=== PATIENT | male | born 1945 | race Two or more races ===

== ENCOUNTER 2020-06-25 11:32 | Inpatient (IN) | payer OTHER ==
[~2020-06-25] VITALS: Ht 167.6 cm; Wt 99.7 kg
[2020-06-25] MEDS ORDERED: ONDANSETRON HCL 4 MG/2 ML VIAL ONE (11:37)
[2020-06-25] MEDS ORDERED: MORPHINE SULFATE 4 MG/ML SYR/VIAL ONE (11:37)
[2020-06-25] MEDS ORDERED: ONDANSETRON HCL 4 MG/2 ML VIAL IV ONE ×2 (11:45→12:00)
[2020-06-25] MEDS ORDERED: HEPARIN 1,000 UNITS/ml 1ML VIAL IV ONE (11:45)
[2020-06-25] MEDS ORDERED: MORPHINE SULFATE 4 MG/ML SYR/VIAL IV ONE ×2 (11:45→12:00)
[2020-06-25] MEDS ORDERED: LIDOCAINE 2%HCL (LOCAL ANESTH.) INJ 20ML MDV ONE (12:10)
[2020-06-25 12:23] LABS: Basophils # (auto) 0 10 ^3/uL (0-0.2); Basophils % (auto) 0.4 % (0.0-2.0); Eosinophils # (auto) 0.1 10 ^3/uL (0-0.8); Hematocrit 50.6 % (41.0-53.0); Hemoglobin 16.8 g/dL (13.5-17.5); Lymphocytes # (auto) 3.3 10 ^3/uL (0.4-5.4); Lymphocytes % (auto) 42.5 % (10.0-50.0); Mean Corpuscular Hemoglobin 29.7 pg (28.0-32.0); Mean Corpuscular Hgb Conc. 33.3 g/dL (32.0-36.0); Mean Corpuscular Volume 89.1 fL (80.0-100.0); Monocytes # (auto) 0.7 10 ^3/uL (0-1.3); Monocytes % (auto) 9.3 % (0.0-12.0); Neutrophils # (auto) 3.6 10 ^3/uL (1.6-8.6); Neutrophils % (auto) 46.8 % (37.0-80.0); Nucleated Red Blood Cells % 0.1 %; Platelet Count (auto) 243 10^3/uL (140-450); Red Blood Cells 5.67 10^6/uL (4.5-5.90); Red Cell Distribution Width 13.3 % (11.8-14.3); White Blood Cell 7.7 10^3/uL (4.4-10.8)
[2020-06-25] MEDS ORDERED: HEPARIN SODIUM (PORCINE) 5000 UNITS/ML 1ML VIAL ONE (12:34)
[2020-06-25] MEDS ORDERED: MIDAZOLAM HCL 1MG/1ML-2 ML VIAL ONE (12:34)
[2020-06-25] MEDS ORDERED: fentaNYL CITRATE 100 MCG/2 ML VL ONE (12:34)
[2020-06-25] MEDS ORDERED: ANGIOMAX 250 MG VIAL IV ONE (12:34)
[2020-06-25] MEDS ORDERED: SODIUM CHL 0.9% 50 ML ONE (12:34)
[2020-06-25] MEDS ORDERED: VERAPAMIL 2.5MG/ML INJ 2ML VIAL IV ONE (12:34)
[2020-06-25 12:39] LABS: INR 0.95 (0.9-1.15); Partial Thromboplastin Time 26.2 sec (23.0-31.2)
[2020-06-25 12:41] LABS: Albumin 4.3 g/dL (3.4-5.0); Calcium 8.8 mg/dL (8.5-10.1); Magnesium 2.7 mg/dL (1.6-2.6); Potassium 4.3 mmol/L (3.5-5.1)
[2020-06-25 12:47] LABS: BUN/Creatinine Ratio 14.6; Bilirubin, Total 1.3 mg/dL (0.2-1.0); Total Protein 7.7 g/dL (6.4-8.2)
[2020-06-25] MEDS ORDERED: IOHEXOL 350 MG/ML 100ML IJ ONE (12:54)
[2020-06-25] MEDS ORDERED: CLOPIDOGREL 300 MG TAB ONE (13:12)
[2020-06-25] MEDS ORDERED: HYDROcodone-ACET 5/325MG TAB PO PRN (15:15)
[2020-06-25] MEDS ORDERED: ACETAMINOPHEN 500 MG TAB PO PRN (15:15)
[2020-06-25] MEDS ORDERED: ONDANSETRON HCL 4 MG/2 ML VIAL IV PRN (15:15)
[2020-06-25] MEDS ORDERED: NITROGLYCERIN 0.4 MG SL TAB SL PRN (15:15)
[2020-06-25] MEDS ORDERED: MORPHINE SULF INJ 2 MG/ML SYRINGE 1ML IV PRN (15:15)
--- NOTE | 2020-06-25 16:00 | NUR ---
Telemetry admit from Hospital Nurse Liaison GLORIA VEGA admitted to Telemetry unit after SBAR received. Patient s/p PTCA and stenting procedure with Dr. Regalado. Vasc Band on right wrist with approximately 8ml of air and s/p 2ml removal by lab intern RN. Access dry and intact. Will continue to follow removal instructions. Patient oriented to VINNIE,primary RN, unit, room, bed, and unit policies regarding patient care and visiting hours. Patient now on continuous telemetry monitoring, tele box #[id number] and telemetry reading on arrival to unit is Sinus rhythm 60bpm. Patient on room air, weighed by bedscale and encouraged to call if they need something. All questions and concerns addressed, patient verbalized understanding.
--- NOTE | 2020-06-25 16:15 | NUR ---
VASC BAND 2 ADDITIONAL MLS OF AIR REMOVED FROM BAND. NO BLEEDING NOTED. ADEQUATE CIRCULATION, SENSATION AND MOTOR FUNCTION INTACT. PATIENT INFORMED TO CALL RN IMMEDIATELY IF BLEEDING BEGINS.
[2020-06-25 17:02] VITALS: BP 137/76
--- NOTE | 2020-06-25 17:15 | NUR ---
VASC BAND REMOVED 2 REMAINING MLS OF AIR REMOVED FROM BAND AND BAND IS NOW COMPLETELY DEFLATED, GAUZE AND TEGADERM APPLIED TO SITE. NO BLEEDING NOTED. ADEQUATE CIRCULATION, SENSATION AND MOTOR FUNCTION INTACT. PATIENT INFORMED TO CALL RN IMMEDIATELY IF BLEEDING BEGINS. PATIENT ALSO EDUCATED TO REFRAIN FROM LIFTING, PUSHING, OR PULLING WITH AFFECTED WRIST FOR ONE WEEK. PATIENT VERBALIZES UNDERSTANDING. WILL CONTINUE TO CLOSELY MONITOR.
[2020-06-25] MEDS ORDERED: ATOR1TAB PO (18:34)
--- NOTE | 2020-06-25 19:05 | NUR ---
CRITICAL LAB REVERSE LOGISTICS ANALYST HOSPITALIST PAGED FOR CRITICAL LAB AWAITING CALL BACK
--- NOTE | 2020-06-25 19:08 | NUR ---
MD MCKEON AWARE OF CRITICAL LAB VALUE. NO NEW ORDERS RECEIVED.
--- NOTE | 2020-06-25 21:45 | NUR ---
call out to hospitalist to inform him of critical value troponin 3.370
[2020-06-25 22:00] VITALS: BP 108/68
[2020-06-25] MEDS ORDERED: ATORVASTATIN 20 MG TAB PO SCH (22:00)
--- NOTE | 2020-06-25 22:19 | NUR ---
Hospitalist Colton notified of troponin 3.370, no new orders at this time
[2020-06-26 05:00] VITALS: BP 128/71
[2020-06-26 09:00] VITALS: BP 121/82
[2020-06-26] MEDS ORDERED: ASPirin 81 mg TAB PO SCH (10:00)
[2020-06-26] MEDS ORDERED: CLOPIDOGREL BISULFATE 75 MG TAB PO SCH (10:00)
[2020-06-26 13:00] VITALS: BP 112/69
[2020-06-26 14:47] VITALS: BP 121/82
--- NOTE | 2020-06-26 16:05 | NUR ---
Discharge instructions given as ordered. Encourage to follow up with PMD as instructed. Prescription script filled and picked up at [facility]. All questions and concerns addressed. Patient verbalized understanding. Medication reconciliation form completed and copy given to patient. IV removed with catheter intact, pressure dressing applied. Telemetry unit returned to ICU. Patient taken to vehicle via wheelchair with all personal belongings, accompanied by staff. No distress noted at time of departure.
== END 2020-06-26 15:40 | disposition home or self-care (01) | DRG 247 ==
LOC: ER 11:32 → EDBD 11:32 → TELE-WESTW 16:00
PROVIDERS: ADMIT Internal Medicine; ATTEND Internal Medicine
PROC: 027136Z Dilation of Coronary Artery, Two Arteries with Three Drug-eluting Intraluminal Devices, Percutaneous Approach (ICD-10-PCS; principal; 2020-06-25)
PROC: B2111ZZ Fluoroscopy of Multiple Coronary Arteries using Low Osmolar Contrast (ICD-10-PCS; 2020-06-25)
DX: I21.19 ST elevation (STEMI) myocardial infarction involving other coronary artery of inferior wall (principal); E87.1 Hypo-osmolality and hyponatremia; I20.8 Other forms of angina pectoris; E66.9 Obesity, unspecified; Z68.35 Body mass index [BMI] 35.0-35.9, adult; E78.5 Hyperlipidemia, unspecified; G89.29 Other chronic pain; E83.41 Hypermagnesemia; M54.9 Dorsalgia, unspecified; Z79.82 Long term (current) use of aspirin; Z79.899 Other long term (current) drug therapy; R73.9 Hyperglycemia, unspecified
CPT/HCPCS: 36415; 71045; 80053; 80061; 82565; 83735; 84484; 84520; 85025; 85610; 85730; 86850; 86900; 86901; 92928; 92929; 93306; 93454; 96374; 96375; 99152; 99153; 99291; C1874; C1887; G0378; J2250; J2405